=== PATIENT | female | born 1955 ===

== ENCOUNTER 2018-05-28 08:51 | Outpatient (CLI) | payer OTHER | END 2018-05-28 08:53 | disposition home or self-care (01) | LOC: SONOGRAMA 08:51 | DX: E04.2 Nontoxic multinodular goiter (principal) ==

== ENCOUNTER 2024-10-07 09:13 | Outpatient (CLI) | payer OTHER | END 2024-10-07 09:15 | disposition home or self-care (01) | LOC: SONOGRAMA 09:13 | PROVIDERS: ATTEND Pathology Anatomic Pathology & Clinical Pathology | DX: D34 Benign neoplasm of thyroid gland (principal); E07.89 Other specified disorders of thyroid; E04.1 Nontoxic single thyroid nodule ==